=== PATIENT | male | born 2000 | race Caucasian/White ===

== ENCOUNTER 2020-06-25 11:19 | Emergency (ER) | payer OTHER, SELFPAY ==
--- NOTE | ~2020-06-25 | XR_ITS ---
EXAMINATION: XR ankle LT min 3V EXAM DATE: 06/25/2020 12:07 INDICATION: Initial encounter following injury, with pain of the left ankle. Twisted. TECHNIQUE: Left ankle frontal, lateral and oblique projections obtained and reviewed. There is no pr ior study for comparison. FINDINGS: The left ankle mortise appears intact. Sequela from old avulsion injuries along the dorsa l aspect talonavicular joint. There are no acute fractures or dislocations identified. There is no s ubcutaneous gas. The soft tissue is unremarkable. There are no radiopaque foreign bodies. IMPRESSION: No acute osseous findings. Reviewed, dictated and finalized at location [facility]. IMPRESSION: No acute osseous findings.
[2020-06-25 11:40] VITALS: BP 137/82; PULSE 81; RESP 14; TEMP 37.4; O2SAT 98
--- NOTE | 2020-06-25 12:27 | ED.LOWEXIN ---
HPI - Extremity Injury (Lower) General Chief Complaint: Extremity Injury, Lower Stated Complaint: left foot injury Time Seen by Provider: 06/25/20 12:17 Source: patient and RN notes reviewed Mode of arrival: ambulatory Limitations: no limitations History of Present Illness HPI Narrative: Patient presents today complaining of pain to the left arch of the foot and left Achilles tendon after twisting his ankle getting out of a truck yesterday. He was ambulatory for the rest of the day yesterday and pain was worse this morning when waking up. Denies numbness or tingling in the leg or foot. Currently rates his pain 4/10, which increases with movement. He has tried ice and [id number] medication without much relief. MD complaint: ankle injury and foot injury Related Data Home Medications Medication Instructions Recorded Confirmed No Home Medications 06/25/20 06/25/20 Allergies Allergy/AdvReac Type Severity Reaction Status Date / Time Penicillins Allergy Intermediate Hives Verified 06/25/20 12:00 Review of Systems Review of Systems: Narrative: CONSTITUTIONAL: Denies body aches, fever, chills, or sweats. EYES: Denies visual changes, redness, or discharge. ENT: Denies rhinorrhea, congestion, sore throat, or otalgia. CARDIOVASCULAR: Denies chest pain, palpitations, or edema. RESPIRATORY: Denies cough or dyspnea. GASTROINTESTINAL: Denies abdominal pain, nausea, vomiting, or diarrhea. GENITOURINARY: Denies dysuria or hematuria. SKIN: Denies rash, itching, or wounds. MUSCULOSKELETAL: Denies back pain, or myalgia. + Left ankle and foot pain NEUROLOGIC: Denies headache, numbness, tingling, or weakness. PSYCH: Denies depression or anxiety. [facility] Past Medical History Medical History (Updated 06/25/20 @ 12:32 by Lien Delgado, [facility], ) Asthma Depression Social History Social History (Updated 04/08/19 @ 10:32 by Kandy Villasenor NP) Gender identity (if verbalized by the patient): Male Comments At time of signature, I have reviewed and agree with nursing past medical, surgical, social and family history unless otherwise noted. Please see nursing chart for further information. There is no relevant family history pertinent to the presenting complaint Exam Narrative: Exam Narrative: GENERAL: Well-appearing, well-nourished, and in no acute distress. HEAD: Normocephalic, atraumatic. EYES: EOMI. No redness or drainage. Conjunctivae normal. ENT: Mucous membranes pink and moist. NECK: Normal AROM. CHEST: No respiratory distress. EXTREMITIES: Left foot: Mild tenderness to the medial arch. No tenderness to the dorsum of the foot or toes. Distal sensation intact. Capillary refill normal. Pedal pulse normal. Tenderness to palpation of the Achilles tendon. No tenderness to the lateral or medial malleolus. No edema to the foot or ankle. Pain with dorsiflexion and plantar flexion against resistance. AROM normal. Negative Waters test. SKIN: Warm, dry, no rash. Capillary refill normal. Normal skin turgor. NEURO: No focal deficits. Alert and oriented x3. Gait steady. PSYCH: Normal affect. No signs of depression or anxiety. Course Vital Signs Vital signs: Vital Signs Temperature 99.3 F 06/25/20 11:40 Pulse Rate 81 06/25/20 11:40 Respiratory Rate 14 06/25/20 11:40 Blood Pressure 137/82 06/25/20 11:40 Pulse Oximetry 98 06/25/20 11:40 Temperature 99.3 F 06/25/20 11:40 Pulse Rate 81 06/25/20 11:40 Respiratory Rate 14 06/25/20 11:40 Blood Pressure 137/82 06/25/20 11:40 Pulse Oximetry 98 06/25/20 11:40 Reviewed. Pt has been instructed to follow up with his PCP regarding his elevated blood pressure today. MDM - Extremity Injury (Lower) Differential Diagnosis Differential diagnosis: Likely ankle sprain and strain, ankle fracture and other (Achilles tendon strain, Achilles tendon tear) Critical Care Time Critical Care Time Critical Care Time: No Discharge Plan Disc
== END 2020-06-25 12:35 | disposition home or self-care (01) ==
PROVIDERS: Emergency Provider Nurse Practitioner
DX: S86.012A Strain of left Achilles tendon, initial encounter (principal); X50.9XXA Other and unspecified overexertion or strenuous movements or postures, initial encounter; J45.909 Unspecified asthma, uncomplicated
CPT/HCPCS: 73610; 99213; G0463

== ENCOUNTER 2021-11-15 01:02 | Emergency (ER) | payer SELFPAY ==
--- NOTE | ~2021-11-15 | CT_ITS ---
EXAMINATION: CT abdomen pelvis wo con DATE: 11/15/2021 03:25 INDICATION: Left lower quadrant abdominal pain radiating to left scrotum TECHNIQUE: Computed tomography (CT) of the abdomen and pelvis was performed without intravenous contr ast. Automated exposure control and iterative reconstruction technique were employed. Exam dose: 175 6.11 mGy-cm total exam DLP. COMPARISON: None. FINDINGS: 1.2 cm right lower lobe pulmonary nodule. The lung bases are clear of infiltrate or consoli dation. Normal heart size. No no pericardial or pleural effusion. The liver, gallbladder, bile ducts are unremarkable. Spleen is within upper normal limits in size. Normal morphology of the adrenal glands. There is an approximately 2.9 mm calculus at left ureterovesical junction or left dependent urinary b ladder. No other urinary tract calculus or left or right hydroureteronephrosis is noted. Normal caliber of the abdominal aorta. No intraperitoneal or retroperitoneal or pelvic mass lesion or adenopathy or ascites. Normal appendix. No bowel obstruction or free air. No suspicious osteolytic or osteoblastic lesions IMPRESSION: Left ureterovesical junction left urinary bladder calculus, without hydroureteronephrosi s Normal appendix Reviewed, dictated and finalized at [facility]. Reviewed, dictated and finalized at location A. IMPRESSION: Left ureterovesical junction left urinary bladder calculus, withou t hydroureteronephrosis Normal appendix
[2021-11-15 01:20] VITALS: BP 155/89; PULSE 72; RESP 16; TEMP 36.4; O2SAT 98
[2021-11-15 02:05] LABS: Basophils Absolute Auto 0.1 K/mm3 (0.0-0.1); Basophils Percent Auto 0.6 % (0.2-1.2); Eosinophils Absolute Auto 0.2 K/mm3 (0-0.3); Eosinophils Percent Auto 1.5 % (0-4.4); Hematocrit 45.5 % (42.0-52.0); Hemoglobin 15.8 g/dL (14.0-18.0); Immature Granulocyte Absolute 0.05 K/mm3 (0.00-0.031); Immature Granulocyte Percent A 0.4 % (0-0.5); Lymphocytes Absolute Auto 5.08 K/mm3 (0.9-3.2); Lymphocytes Percent Auto 42.4 % (18.3-44.2); Mean Corpuscular HGB Conc 34.7 g/dl (32-36); Mean Corpuscular Hemoglobin 28.7 pg (26-34); Mean Corpuscular Volume 82.7 fl (80-100); Mean Platelet Volume 9.4 fl (7.4-10.4); Monocytes Absolute Auto 0.9 K/mm3 (0.1-0.6); Monocytes Percent Auto 7.6 % (2.6-8.5); Neutrophils Absolute Auto 5.7 K/mm3 (1.3-6.7); Neutrophils Percent Auto 47.5 % (45.5-73.1); Platelet Count Result 258 k/mm3 (150-375); Red Cell Distribution Width 12.6 % (11.5-14.5)
--- NOTE | 2021-11-15 02:06 | ED.ABDPAIN ---
HPI - Abdominal Pain General Chief Complaint: Abdominal Pain Stated Complaint: LLQ pain Time Seen by Provider: 11/15/21 01:46 History of Present Illness HPI narrative: 21-year-old male presents the emergency room for evaluation of left lower quadrant pain. Patient states that the pain began abruptly around 1230 this morning. States pain radiates into his left testicle. Also endorses decreased urine flow states pain goes in waves and describes it as sharp. Denies any nausea vomiting or diarrhea. Denies constipation. Related Data Allergies Allergy/AdvReac Type Severity Reaction Status Date / Time Penicillins Allergy Intermediate Hives Verified 11/15/21 01:49 Review of Systems Review of Systems: CONSTITUTIONAL: Denies fever, chills, or sweats. EYES: Denies visual changes, redness, or discharge. ENT: Denies rhinorrhea, congestion, sore throat, or otalgia. CARDIOVASCULAR: Denies chest pain, palpitations, or edema. RESPIRATORY: Denies cough or dyspnea. GASTROINTESTINAL: Reports abdominal pain GENITOURINARY: Reports decreased urine flow SKIN: Denies rash or itching. MUSCULOSKELETAL: Denies back pain, joint pain, or myalgia. NEUROLOGIC: Denies headache, numbness, dizziness, or weakness. PSYCHIATRIC: Denies anxiety or depression. [facility] Past Medical History Medical History Asthma Depression Social History Social History Gender identity (if verbalized by the patient): Male Exam Narrative: GENERAL: Well-appearing, well-nourished, no physical limitations, and in no acute distress. HEAD: Normocephalic, atraumatic. EYES: Conjunctivae normal, PERRLA and EOMI. CHEST: Clear to auscultation. No respiratory distress. No wheezes rales or rhonchi. No tenderness. HEART: Regular rate and rhythm. No murmur heard. Normal peripheral pulses. ABDOMEN: Soft, left lower quadrant tenderness, suprapubic tenderness, nondistended, normal active bowel sounds. BACK: No CVA tenderness EXTREMITIES: Normal range of motion. No edema. No clubbing or cyanosis SKIN: Warm, dry, no rash. No noted wounds NEURO: No focal deficits. Alert and oriented x3. MAEW. CN's II-XI intact bilaterally, normal gait PSYCH: Cooperative. Normal mood and affect. Course Vital Signs Vital signs: Vital Signs Temperature 97.5 F L 11/15/21 01:20 Pulse Rate 72 11/15/21 01:20 Respiratory Rate 16 11/15/21 01:20 Blood Pressure 155/89 H 11/15/21 01:20 Pulse Oximetry 98 11/15/21 01:20 Oxygen Delivery Room Air 11/15/21 01:20 Temperature 97.5 F L 11/15/21 01:20 Pulse Rate 72 11/15/21 01:20 Respiratory Rate 16 11/15/21 01:20 Blood Pressure 155/89 H 11/15/21 01:20 Pulse Oximetry 98 11/15/21 01:20 Oxygen Delivery Room Air 11/15/21 01:20 MDM - Abdominal Pain Lab Data Result diagrams: 11/15/21 01:54 11/15/21 01:54 Labs: Lab Results 11/15/21 11/15/21 11/15/21 Range/Units 01:54 01:54 02:49 WBC 12.0 H (4.5-10.0) K/mm3 RBC 5.50 (4.6-6.20) M/mm3 Hgb 15.8 (14.0-18.0) g/dL Hct 45.5 (42.0-52.0) % MCV 82.7 (80-100) fl MCH 28.7 (26-34) pg MCHC 34.7 (32-36) g/dl RDW 12.6 (11.5-14.5) % Plt Count 258 (150-375) k/mm3 MPV 9.4 (7.4-10.4) fl Immature Gran % (Auto) 0.4 (0-0.5) % Neut % (Auto) 47.5 (45.5-73.1) % Lymph % (Auto) 42.4 (18.3-44.2) % Chambers % (Auto) 7.6 (2.6-8.5) % Eos % (Auto) 1.5 (0-4.4) % Baso % (Auto) 0.6 (0.2-1.2) % Lymph # (Auto) 5.08 H (0.9-3.2) K/mm3 Chambers # (Auto) 0.9 H (0.1-0.6) K/mm3 Eos # (Auto) 0.2 (0-0.3) K/mm3 Baso # (Auto) 0.1 (0.0-0.1) K/mm3 Abs Immat Gran (auto) 0.05 H (0.00-0.031) K/mm3 Absolute Neuts (auto) 5.7 (1.3-6.7) K/mm3 Absolute Nucleated RBC 0.0 (0.0-0.012) K/mm3 Nucleated RBC % 0.0 (0.0-0.2) % Sodium 142 (137-145) mmol/L Potassium 3.6 (3.4-
[2021-11-15 02:11] LABS: Alanine Aminotransferase 60 U/L (6-50); Albumin Level 5.2 g/dL (3.5-5.1); Alkaline Phosphatase 66 U/L (38-126); Anion Gap 13 mmol/L (8-16); Aspartate Amino Transferase 31 U/L (17-59); Bilirubin,Total 0.9 mg/dL (0.2-1.3); Blood Urea Nitrogen 13 mg/dL (9-20); Calcium 9.2 mg/dL (8.4-10.2); Carbon Dioxide 27 mmol/L (22-30); Chloride 102 mmol/L (98-107); Estimated CRCL calculation 137 ml/min; Estimated Glomerular Filt Rate > 60; Glucose 123 mg/dL (65-110); Lipase 53 U/L (23-300); Potassium 3.6 mmol/L (3.4-5.0); Sodium 142 mmol/L (137-145)
[2021-11-15] MEDS: SODIUM CHLORIDE 0.9% IV 1,000 ML 999 ML IV CONT (02:38)
[2021-11-15 02:58] LABS: Appearance Urine Clear (Clear); Bilirubin Urine Negative (Negative); Blood Urine 3+ (Negative); Color Urine Yellow (Yellow); Glucose Urine UA Negative (Negative); Ketones Urine Negative (Negative); Leukocyte Esterase Ur Negative LEU/UL (Negative); Nitrate Urine Negative (Negative); Protein Urine Trace mg/dL (Negative); Specific Grav Ur >= 1.030 (1.001-1.035); Urobilinogen Urine 0.2 mg/dL (<2.0); pH Urine 5.5 (5.0-9.0)
[2021-11-15 03:05] LABS: Mucus Urine Rare /lpf; RBC Urine 21-50 /hpf (0-2); Squamous Epithelial Cell Urine Rare /hpf (Few); WBC Urine 0-3 /hpf
[2021-11-15 03:09] LABS: Add Urine Microscopic? YES
[2021-11-15] MEDS: KETOROLAC 30 MG/ML VIAL (*BKC) IV PUSH (03:21)
[2021-11-15 06:00] VITALS: BP 122/58; PULSE 95; RESP 16; O2SAT 100
== END 2021-11-15 06:00 | disposition home or self-care (01) ==
PROVIDERS: Emergency Provider Emergency Medicine
DX: N20.0 Calculus of kidney (principal); J45.909 Unspecified asthma, uncomplicated
CPT/HCPCS: 36415; 74176; 80053; 81001; 83690; 85025; 96361; 96374; 99284; J1885; J7030

== ENCOUNTER 2024-09-16 11:29 | Emergency (ER) | payer BC, SELFPAY ==
--- OUTSIDE RECORDS SUMMARY | 2024-09-16 11:31 | XMS_ITS | Referral Summary ---
Author Organization [address] Address [address] [place] [address] Care Team Providers Care Dials Supervisor Name Role Phone No, Physician Primary Care Provider [phone] Allergies Active Allergy Reactions Criticality Noted Date Comments Penicillin Hives Medium 05/12/2022 Medications albuterol HFA (PROVENTIL HFA,VENTOLIN HFA,PROAIR HFA) 90 mcg/actuation inhalerIndicati ons:COVID-19 Inhale 2 puffs every 6 (six) hours as needed for wheezing 1 each 05/12/2022 Active Active Problems No known active problems Social History Tobacco Use Types Packs/Day Years Used Date Smoking Tobacco: Never Assessed Sex and Gender Information Value Date Recorded Sex Assigned at Not on file Legal 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 Gender Identity Not on file Sexual Orientation Not on file Last Filed Vital Signs Vital Sign Reading Time Taken Comments Blood Pressure 126/60 05/12/2022 5:10 PM LOCOMOTIVE INSPECTOR Pulse 124 05/12/2022 5:10 PM LOCOMOTIVE INSPECTOR Temperature 37.8 C (100 F) 05/12/2022 5:10 PM LOCOMOTIVE INSPECTOR Respiratory Rate 20 05/12/2022 5:10 PM LOCOMOTIVE INSPECTOR Oxygen Saturation 97% 05/12/2022 5:10 PM LOCOMOTIVE INSPECTOR Inhaled Oxygen Concentration - - Weight 116.9 kg (257 lb 12.8 oz) 05/12/2022 5:10 PM LOCOMOTIVE INSPECTOR Height 182.8 cm (5' 11.97) 05/12/2022 5:[address] Body Mass Index 34.99 05/12/2022 5:10 PM LOCOMOTIVE INSPECTOR Plan of Treatment Not on file Care Teams Dials Supervisor Relationship Specialty Start Date End Date No, Physician PCP - General 05/12/22
--- OUTSIDE RECORDS SUMMARY | 2024-09-16 11:31 | XMS_ITS | Clinical Summary ---
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 Gender Identity Not on file Sexual Orientation Not on file Obstetrics History Last Filed Vital Signs Vital Sign Reading Time Taken Comments Blood Pressure 126/60 05/12/2022 5:10 PM CHANGE DIRECTOR Pulse 124 05/12/2022 5:10 PM CHANGE DIRECTOR Temperature 37.8 C (100 F) 05/12/2022 5:10 PM CHANGE DIRECTOR Respiratory Rate 20 05/12/2022 5:10 PM CHANGE DIRECTOR Oxygen Saturation 97% 05/12/2022 5:10 PM CHANGE DIRECTOR Inhaled Oxygen Concentration - - Weight 116.9 kg (257 lb 12.8 oz) 05/12/2022 5:10 PM CHANGE DIRECTOR Height 182.8 cm (5' 11.97) 05/12/2022 5:[address] Body Mass Index 34.99 05/12/2022 5:10 PM CHANGE DIRECTOR Plan of Treatment Health Maintenance Due Date Last Done Comments Depression Screening 1999 Hepatitis C Screening 1999 DTaP/Tdap/Td Vaccine (1 - Tdap) 2010 Varicella Vaccines (1 of 2 - 13+ 2-dose series) 02/12/2012 HPV Vaccines (1 - Male 3-dos e series) 2014 Hepatitis B Screening 2017 Regular Well Visit/Exam 18-64 2017 Influenza Vaccine (Season Ended) 2024 Pneumococcal vaccine <65 Aged Out No longer eligible based on patient's age to complete this topic Care Teams Classroom Technology Coach Relationship Specialty Start Date End Date No, Physician PCP - General 05/12/22
[2024-09-16 11:38] VITALS: BP 135/89; PULSE 68; RESP 18; TEMP 36.6; O2SAT 99
--- NOTE | 2024-09-16 11:57 | ED.GENADULT ---
HPI - General Adult General Chief complaint: Ear Stated complaint: Left Ear Problem/Nausea Source: patient Mode of arrival: ambulatory History of Present Illness HPI narrative: Pt presents with reports of sensation that his left ear is clogged. Symptom onset about one month ago. He reports decreased hearing on that side, with increased pressure and hearing loss. He has some chronic tinnitus. He attempted to clean his ear out with hydrogen peroxide. No fever, chills, nausea, vomiting, sore throat or cough. Related Data Allergies Allergy/AdvReac Type Severity Reaction Status Date / Time Penicillins Allergy Intermediate Hives Verified 09/16/24 11:38 Review of Systems Review of Systems: CONSTITUTIONAL: Denies fever, chills, or sweats. EYES: Denies visual changes, redness, or discharge. ENT: Reports increased pressure, decreased hearing and sensation that ear is clogged on left side. Denies rhinorrhea, congestion, or sore throat. CARDIOVASCULAR: Denies chest pain, palpitations, or edema. RESPIRATORY: Denies cough or dyspnea. GASTROINTESTINAL: Denies abdominal pain, nausea, vomiting, or diarrhea. GENITOURINARY: Denies dysuria or hematuria. SKIN: Denies rash or itching. MUSCULOSKELETAL: Denies back pain, joint pain, or myalgia. NEUROLOGIC: Denies headache, numbness, dizziness, or weakness. PSYCHIATRIC: Denies anxiety or depression. [facility] [place] [facility] Past Medical History Medical History Kidney stone Asthma Depression Surgical History Surgical History No pertinent past surgical history Family History Family History Mother Family history non-contributory Social History Social History Smoking status: Never smoker Substance use: never Living arrangements: with family Gender identity (if verbalized by the patient): Male Exam Narrative: GENERAL: Well-appearing, well-nourished, and in no acute distress. HEAD: Normocephalic, atraumatic. EYES: PERRLA and EOMI. ENT: Nares clear, no rhinorrhea or epistaxis. Mucous membranes moist. Oropharynx without tonsillar hypertrophy exudate or other lesions. Unable to visualize the bilateral TMs due to cerumen impaction bilaterally. NECK: Supple. No adenopathy or masses. No carotid bruits or JVD CHEST: Clear to auscultation. No respiratory distress. No wheezes rales or rhonchi HEART: Regular rate and rhythm. No murmur heard. Normal peripheral pulses. ABDOMEN: Soft, nontender, nondistended, normal active bowel sounds. EXTREMITIES: Normal range of motion. No edema. SKIN: Warm, dry, no rash. NEURO: No focal deficits. Alert and oriented x3. PSYCH: Normal mood and affect. Course Course Emergency Course: This is a 24 year old male who presented for evaluation of sensation that his left ear is clogged. He had evidence of bilateral cerumen impaction. Left canal irrigated with hydrogen peroxide and water. Pt tolerated well, with small amount of erythema in canal thereafter. Left TM intact. Right canal had same procedure performed. TM intact. Ear canal erythematous. Pt tolerated well. Will dc with ofloxacin. Follow up with primary provider. Go to the ER for worsening symptoms. Pt in agreement with plan of care. Level of Care: Express Care Visit Vital Signs Vital signs: Vital Signs Temperature 36.6 C 09/16/24 11:38 Pulse Rate 09/16/24 11:38 Respiratory Rate 09/16/24 11:38 Blood Pressure 135/89 09/16/24 11:38 Pulse Oximetry 09/16/24 11:38 Oxygen Delivery Room Air 09/16/24 11:38 Temperature 36.6 C 09/16/24 11:38 Pulse Rate 09/16/24 11:38 Respiratory Rate 09/16/24 11:38 Blood Pressure 135/89 09/16/24 11:38 Pulse Oximetry 09/16/24 11:38 Oxygen Delivery Room Air 09/16/24 11:38 Medical Decision Making Vital Signs Vital Signs: Vital Signs Temperature 36.6 C 09/16/24 11:38 Pulse Rate 09/16/24 11:38 Respiratory Rate 09/16/24 11:38 Blood Pressure 135/89 09/16/24 11:38 Pulse Oximetry 09/16/24 11:38 Oxygen Delivery Room Air 09/16/24 11:38 Temperature 36.6 C 09/16/24 11:38 Pulse Rate 68 09/16/24 11:38 Respiratory Rate 18 09/16/24 11:38 Blood Pressure 135/89 09/16/24 11:38 Pulse Oximetry 99 09/16/24 11:38 Oxygen Delivery Room Air 09/16/24 11:38 Discharge Plan Discharge Clinical Impression: Bilateral impacted cerumen Patient Disposition: Home Condition: Stable Instructions: Antibiotic Form, Carbamide Peroxide (Into the ear), Earache (ED) Patient Language: [place] Prescriptions: New ofloxacin 0.3 % drops 10 drp EACH EAR DAILY 7 Days Qty: 10 0RF Follow-up/Referrals: Denise Ferrer DO [Physician] - Time of Disposition: 11:57
== END 2024-09-16 12:13 | disposition home or self-care (01) ==
PROVIDERS: Emergency Provider Nurse Practitioner
DX: H61.23 Impacted cerumen, bilateral (principal); J45.909 Unspecified asthma, uncomplicated
CPT/HCPCS: 69209; 99213; G0463